=== PATIENT | female | born 1935 | race Caucasian/White ===

== ENCOUNTER → 2017-09-01 | Outpatient (CLI) | payer OTHER ==
[~2017-09-01] VITALS: Ht 154.9 cm; Wt 60.2 kg
[~2017-09-01] MED LIST: AMLODIPINE BESYL5 MG PO; ASPIR 8181 MG PO; BENADRYL25 MG PO; DIOVAN HCT 3201 EAC1 PO; FENTANYL PA25 MCG/HR TRANSDERM; FISH OIL 1,001000 M2 PO; HYDROCODONE-APA1 TA1 PO; LIVALO4 MG PO; MIRAPEX 0.250.25 M1 PO; MOBIC15 MG PO; PANTOPRAZOLE SO40 M1 PO; SEROQUEL 25 MG25 M1 PO; STOOL SOFTENER100 MG PO; TUMS PO; XANAX 0.25 MG0.25 MG
--- NOTE | ~2017-09-01 | HPC ---
[facility] [address] [place] [address] PAIN MANAGEMENT CONSULTATION Name: YURIY SHANNON Room #: REG LEODAN Franca.#: [id number] Admission: 09/01/17 Attend Phys: Caesar Daley MD Discharge: Date of : 34 Report #: [id number] THIS REPORT FOR: //name// CC: Richard Daley DATE OF SERVICE: 09/01/2017 Followup visit for low back pain with radiculopathy and lumbar spondylosis. The patient returns to pain clinic today for treatment. She has multiple pain generators throughout her rotational scoliosis. Pain is emanating from the joints as well as a radicular component from nerve involvement. Today, she reports that her pain is an 8-9/10. Pain is in her back, hips and legs. It radiates with walking and standing. She gets some relief from medication. She has received medication benefit previously from transforaminal epidural injections. We have discussed performance of a bilateral injection today at L5-S1 with hopes that we can provide relief of the bilateral discomfort. MEDICATIONS: Mirapex, meloxicam, Benadryl, alprazolam, hydrocodone 7.5/325 two to three per day, aspirin, pantoprazole, Livalo and warfarin. ALLERGIES: ERYTHROMYCIN, EPINEPHRINE, TRAZODONE. 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 She also has right upper extremity pain and hand pain. She has no history of rheumatoid arthritis. She has a BMI of 25, blood pressure 153/63, heart rate 74, respirations 18. She is not a fall risk. She is able to move steadily and independently without a walker or a cane. She is on no blood thinners. She has all of her medications provided for her by Dr. Mancuso. We did not provide her with any opiate counseling or treatment. MRI is reviewed showing multilevel degenerative changes throughout including lateral listhesis of L3 on L4 and also spinal stenosis and bilateral facet arthropathy, creating neural foraminal narrowing at L5-S1. IMPRESSION: Markedly degenerative spine with rotational scoliosis, spondylosis and lumbar radiculopathy involving multiple dermatomes. RECOMMENDATION: Epidural steroid injection under fluoroscopic guidance. PROCEDURE: She was taken to fluoroscopic suite, placed prone, skin prepped with ChloraPrep. Skin anesthetized over the L5-S1 interspace. Using triplanar fluoroscopic views, I advanced the needle into the neural foramen at L5-S1 on her left first. A 0.5 mL of Omnipaque demonstrated an excellent epidurogram, [facility] [address] [place] [address] PAIN MANAGEMENT CONSULTATION Name: YURIY SHANNON Room #: REG [facility]#: [id number] Admission: 09/01/17 Attend Phys: Caesar Daley MD Discharge: Date of : 34 Report #: [id number] this was followed by 3 mL of 0.5% lidocaine mixed with 40 mg triamcinolone. We then moved the C-arm to the right and performed a mirror image injection using the same technique. She tolerated the procedure well. Her pain score was reduced to 0 at discharge. Followup visit planned as needed. No new medications were ordered for this patient. By: 1245 1430 Caesar Daley MD /nt
[2017-09-01 10:56] VITALS: BP 153/63
== END | disposition home or self-care (01) ==
LOC: PAIN 05-12 07:00
DX: M54.16 Radiculopathy, lumbar region (principal); M41.9 Scoliosis, unspecified; M47.816 Spondylosis without myelopathy or radiculopathy, lumbar region; Z79.899 Other long term (current) drug therapy; Z88.8 Allergy status to other drugs, medicaments and biological substances; Z87.891 Personal history of nicotine dependence

== ENCOUNTER → 2017-09-25 | Outpatient (CLI) | payer OTHER ==
[~2017-09-25] VITALS: Ht 154.9 cm; Wt 60.0 kg
[~2017-09-25] MED LIST changes: +IRON325 PO
--- NOTE | ~2017-09-25 | HPC ---
[facility] [place] [address] PAIN MANAGEMENT CONSULTATION Name: SHANTHI SHANNONCHARLINE Lane Room #: REG [facility].#: [id number] Admission: 09/25/17 Attend Phys: Caesar Daley MD Discharge: Date of : 34 Report #: [id number] THIS REPORT FOR: //name// CC: Richard Daley DATE OF SERVICE: 09/25/2017 CHIEF COMPLAINT: Low back pain. HISTORY OF PRESENT ILLNESS: The patient returns to the pain clinic today and has reported a declining response to lumbar epidural injection. She has mostly pain across her low back. It is worse with back extension. She scores it is 8/10, worse with walking and standing. She has been using heat and a bit of medication to provide some relief. MEDICATIONS: Mirapex, Meloxicam 15 mg daily, Benadryl, fish oil, docusate sodium, Xanax for sleep, hydrocodone 7.5 up to 3 per day provided by Dr. Mancuso, aspirin, pantoprazole, Livalo and Diovan. PQRS REVIEW: Shows a sharp bright 81-year-old with osteoarthritis of the right and left shoulder. It is fairly severe causing pain. Her BMI is 25. Her blood pressure 151/69, heart rate 86, respirations 20 and pain intensity 8/10. She is not a fall risk. She does not use a walking device. She has hypertension, under treatment by Dr. Mancuso and is receiving opioids under his direction. IMPRESSION: Low back pain related to spondylitic changes. RECOMMENDATION: Medial branch nerve blocks bilaterally, L2, L3 and L4 and dorsal ramus block of L5 to denervate the 3 lowest facet joints. This should help treat her MRI documented spondylitic changes. She has severe multilevel facet arthrosis advanced L3-L4 through L5-S1. We will see her back in the pain clinic for diagnostic injections in the next week or two. By: 1721 2210 Caesar Daley MD /nt
[2017-09-25 10:33] VITALS: BP 151/69
== END ==
LOC: PAIN 07:01
DX: M54.5 Low back pain (principal)

== ENCOUNTER → 2017-09-29 | Outpatient (CLI) | payer OTHER ==
[~2017-09-29] VITALS: Ht 154.9 cm; Wt 59.4 kg
--- NOTE | ~2017-09-29 | HPC ---
[facility] [address] [address] PAIN MANAGEMENT CONSULTATION Name: YURIY SHANNON Room #: REG Jenni Wallace#: [id number] Admission: 09/29/17 Attend Phys: Caesar Daley MD Discharge: Date of : 34 Report #: [id number] THIS REPORT FOR: //name// CC: Richard Daley DATE OF SERVICE: 09/29/2017 Followup visit for low back pain with spondylosis. The patient was just recently seen in the clinic on 09/25/2017. She is here today for medial branch nerve blocks for the spondylitic changes of her low back. We are hopeful that if the diagnostic injections are helpful that she will then be a reasonable candidate for radiofrequency ablation. She has failed other therapies including epidural injections. We have discussed spinal cord stimulation therapy, although I think that given her spondylitic back, she is not an ideal candidate for that condition. Her back pain intensity is as high as an 8 with movements. It is predictably produced. We will carefully loly following the diagnostic injections today, repeat them again in a few days and then proceed with radiofrequency as necessary or as indicated. PHYSICAL EXAMINATION: She remains pleasant, alert and oriented, without signs of memory loss or dementia. Her blood pressure today 136/86, heart rate 68, respirations 16, pain across the low back with forward flexion and worse with extension and lateral movements. Tenderness is located just above the iliac crest. I did review her x-rays. She has significant facet arthrosis at multiple levels including the worst arthritis where she has acquired a scoliosis with its apex at L3-L4. PROCEDURE: Medial branch nerve blocks 4 levels. Chosen levels will be at the most affected level. We will treat the L4, L3, L2 and L1 medial branch nerves bilaterally. DESCRIPTION OF PROCEDURE: After informed consent, she was taken to fluoroscopic suite where she was placed prone. Skin was prepped with ChloraPrep and anesthetized with 1% lidocaine overlying the targets for each of the above-mentioned medial branch nerves on the left. A careful placement of the needles was performed, although targets are challenging in this scenario. We were able to locate the Pop dog landmarks and needle's position. After negative aspiration, I injected each needle with 0.5 to 1 mL of 0.5% bupivacaine and all 4 needles were removed. C-arm was then repositioned and the patient was allowed to reposition as well. We then identified the right-sided target zones. All 4 needles were placed again at the L4, L3, L2, L1 medial branch nerve locations at the medial transverse process and after negative aspiration, [place] [address] PAIN MANAGEMENT CONSULTATION Name: YURIY SHANNON Room #: REG CLJenni Wallace#: [id number] Admission: 09/29/17 Attend Phys: Caesar Daley MD Discharge: Date of : 34 Report #: [id number] injected 0.5 to 1 mL of 0.5% bupivacaine in each of these target zones. Waskish were removed, Band-Aid was applied. She was taken to recovery room where she was observed from 14:25 through 15:15. We carefully monitored her scores and performed provocative maneuvers. From 3:00 through 6:00, her pain scores were 0-1. By 8:00 that evening, her pain scores had returned to 2-3. She placed a call to our clinic. We planned the second diagnostic treatments on Friday followed by radiofrequency if we see similar results. By: 1043 1423 Caesar Daley MD /nt
[2017-09-29 13:47] VITALS: BP 136/86
== END | disposition home or self-care (01) ==
LOC: PAIN 06:59
DX: M47.816 Spondylosis without myelopathy or radiculopathy, lumbar region (principal); G89.29 Other chronic pain; Z87.891 Personal history of nicotine dependence; Z88.8 Allergy status to other drugs, medicaments and biological substances; Z79.82 Long term (current) use of aspirin; Z79.899 Other long term (current) drug therapy; Z79.891 Long term (current) use of opiate analgesic

== ENCOUNTER → 2017-10-06 | Outpatient (CLI) | payer OTHER ==
[~2017-10-06] VITALS: Ht 154.9 cm; Wt 58.8 kg
--- NOTE | ~2017-10-06 | HPC ---
[facility] [place] [address] PAIN MANAGEMENT CONSULTATION Name: YURIY SHANNON Room #: REG Jenni Wallace#: [id number] Admission: 10/06/17 Attend Phys: Caesar Daley MD Discharge: Date of : 34 Report #: [id number] THIS REPORT FOR: //name// CC: Richard Daley DATE OF SERVICE: 10/06/2017 Followup visit for lumbar spondylosis with facet arthropathy. The patient returns to the pain clinic today for a second in a series of diagnostic medial branch nerve blocks. We performed the first treatments on 09/29/2017. We reviewed her diagnostic flow chart. For the first 2 hours following the procedure, her pain score was zero. Over the next hour, it gradually increased from 1-2 and then by 8:00 in the evening following the procedure, she was back to baseline at 4-5 pain score. This is what we would expect for a favorable response. We have elected to go ahead and proceed again with her second diagnostic injection today using bupivacaine. I have reviewed needle placements and we will try to place them down identically to her previous treatments. She has a dextroscoliosis with an apex at L2-L3 and a right lateral listhesis of L3 on L4 with associated Mobic endplate changes. At previous visit, I treated the L1, L2, L3 and L4 medial branch nerves bilaterally. PHYSICAL EXAMINATION: Today, she is pleasant, alert and oriented. She is a little worried about her , he is being treated for prostate cancer with radiation. Her blood pressure is 143/65, heart rate 69, respirations 16, O2 sat 96%. Pain intensity is 4-5/10. Localized pain in the low back with back extension. Minimal pain with flexion. IMPRESSION: Low back pain with spondylosis, dextroscoliosis and facet arthropathy. PROCEDURE: Medial branch nerve blocks L1-L2, L3-L4 bilaterally. After informed consent, she was taken to fluoroscopic suite where she was placed prone, skin prepped with ChloraPrep. Skin was anesthetized first on the left with 1% lidocaine overlying the target for each of the bone above-mentioned medial branch nerves. Careful placement of 25-gauge needles was performed. At each target zone identified, I injected 0.5 mL of 0.5% bupivacaine at the L1, L2, L3 and L4 medial branch nerves corresponding to the L2, L3, L4, L5 transverse process. Riddle were withdrawn. C-arm was moved to the right and mirror image injections were performed on that side. She tolerated the procedure well. There were no complications. She was taken to recovery room and an ice was applied to the back. She was given a [id number] [address] PAIN MANAGEMENT CONSULTATION Name: YURIY SHANNON Room #: REG LEODAN Wallace#: [id number] Admission: 10/06/17 Attend Phys: Caesar Daley MD Discharge: Date of : 34 Report #: [id number] and discharged. Pain score flow sheet was provided. I am assuming that she will have a similar response as is typical. If so, we will proceed with radiofrequency ablation at followup visit. I would prefer to do both sides simultaneously if we are allowed to do so by her insurance company. We could not, I think do it officially without any increased risk to the patient and this would also be cost effective for her. Finally, I did review her lab work. She appears to have iron deficiency anemia and although she has been placed on oral iron supplements, her numbers remain low. She has also lost some weight. She will be following up with Dr. Mancuso this week. These injections include no triamcinolone or other substance beyond local anesthetic. They should not be playing a role in her changes within lab work. I am concerned, however, that she remains on meloxicam and she could have a GI bleed, which is being masked by oral iron supplement. She has been instructed to discontinue her meloxicam. By: 1202 1847 Caesra Daley MD /nt
[2017-10-06 10:43] VITALS: BP 143/65
== END ==
LOC: PAIN 07:16
DX: M47.816 Spondylosis without myelopathy or radiculopathy, lumbar region (principal); M41.86 Other forms of scoliosis, lumbar region; M46.96 Unspecified inflammatory spondylopathy, lumbar region; G89.29 Other chronic pain; Z87.891 Personal history of nicotine dependence; Z88.8 Allergy status to other drugs, medicaments and biological substances; Z79.82 Long term (current) use of aspirin; Z79.899 Other long term (current) drug therapy; Z98.890 Other specified postprocedural states

== ENCOUNTER → 2017-12-18 | Outpatient (CLI) | payer OTHER ==
[~2017-12-18] VITALS: Ht 154.9 cm; Wt 58.4 kg
[~2017-12-18] MED LIST changes: +COZAAR 25 MG TA25 M1 PO; +NORVASC5 MG PO
--- NOTE | ~2017-12-18 | HPC ---
[facility] [address] [place] [address] PAIN MANAGEMENT CONSULTATION Name: YURIY SHANNON Room #: REG LEODAN Franca.#: [id number] Admission: 12/18/17 Attend Phys: Caesar Daley MD Discharge: Date of : 34 Report #: [id number] THIS REPORT FOR: //name// CC: Richard Daley DATE OF SERVICE: 12/18/2017 Followup visit for lumbar spondylosis. The patient is here today for radiofrequency ablation on the right. The patient had a nice response to medial branch nerve blocks on 2 occasions and she is here today to complete the procedure by the first step of radiofrequency, which would be the right side, her most troublesome side. She has marked curvature scoliosis and spondylosis causing back pain and she also has radiculopathy. We have talked about multiple pain generators and I think it is clear that although some spondylitic joints provided great deal of her discomfort, she also has radicular components as well. She may ultimately require an epidural injection as well and there is a possibility that down the line, we might consider spinal cord stimulation. First things first. We will complete the radiofrequency procedure today that has been outlined in previous notes. She is on no blood thinners. Medications have been reviewed and reconciled. Pain score is an 8 prior to the beginning of the procedure. She describes it as a dull aching sensation across her low back with some radiation down into the anterior thighs. IMPRESSION: Low back pain with scoliosis and spondylosis. Lumbar radiculopathy as well. PROCEDURE: Radiofrequency L1-L2, L3-L4 on the right under fluoroscopic guidance. After informed consent, the patient was taken to fluoroscopic suite, placed prone, skin prepped with ChloraPrep. Skin was anesthetized over the target entry points for the L2, L3, L4, L5 transverse processes. These correspond to the medial branch nerves of L1, L2, L3, L4. With careful AP and lateral views, I positioned a 10-mm active tip 20-gauge RFK needle at the medial border of the transverse process where it becomes the superior articular process. Clyde were positioned and checked prior to the initiation of testing. Testing went extremely well with stimulation sensory responses at 0.3 or 0.4 at each level. This was followed by motor testing at 2.0 for the 2 Hz stimulation. There was some slight motor response at the L3 transverse process and the needle was withdrawn 1 mm and then 2 until there was no motor testing. We checked it again [address] [address] PAIN MANAGEMENT CONSULTATION Name: YURIY SHANNON Room #: REG [facility]#: [id number] Admission: 12/18/17 Attend Phys: Caesar Daley MD Discharge: Date of : 34 Report #: [id number] later in the procedure to ensure that there was no movement in the leg prior to performing any lesioning. When we were satisfied with the positions of the needles, I withdrew the probes and injected 1 mL of lidocaine through each needle. The probes were returned to the needle and we waited a full 90 seconds before beginning the radiofrequency ablation. The ablation was performed at 80 degrees for 90 seconds. She had no discomfort in back or legs during the procedure. Probes were once again removed. Through each needle, I injected 0.5 mL of 0.5% bupivacaine mixed with 10 mg of triamcinolone and the needles were removed. She tolerated the procedure well. There were no complications. She had no excessive weakness, numbness, tingling or pain in the recovery room, and was discharged in good condition, able to ambulate. A followup planned in 1 week for the of the radiofrequency procedure by performing the left side. By: 1239 1451 Caesar Daley MD /nt
[2017-12-18 10:31] VITALS: BP 137/68
== END | disposition home or self-care (01) ==
LOC: PAIN 07:27
DX: M47.816 Spondylosis without myelopathy or radiculopathy, lumbar region (principal); M41.86 Other forms of scoliosis, lumbar region; G89.29 Other chronic pain; Z87.891 Personal history of nicotine dependence; Z88.8 Allergy status to other drugs, medicaments and biological substances; Z79.899 Other long term (current) drug therapy; Z79.82 Long term (current) use of aspirin

== ENCOUNTER → 2018-10-15 | Outpatient (CLI) | payer OTHER ==
[~2018-10-15] VITALS: Ht 154.9 cm; Wt 55.5 kg
[~2018-10-15] MED LIST changes: +CALCIUM 600 +1 EAC1 PO; +FOSAMAX 70 MG T70 MG PO; +HYDROCHLOROTHIA25 M2 PO; +LOSARTAN POTAS100 MG PO
[2018-10-15 10:19] VITALS: BP 158/89
--- NOTE | 2018-10-15 10:31 | NUR ---
Pain Clinic Assessment: 1. History of Osteoarthritis: Left Upper Extremity Right Upper Extremity History of Rheumatoid Arthritis: Not Applicable 2. Height: 5 ft. 1 in. 154.9 cm. Weight: 122.4 lb. oz. 55.520 kg. Patient's BMI: 23.1 3. Vital Signs: BP: 158/89 Pulse: 74 Resp: 20 Temp: 02 Sat: 96 ECG Mon: 4. Pain Intensity: 6 5. Fall Risk: Dizziness: Y Needs help standing or walking: Y Fallen in the last 3 months: N Fall risk comments: 6. Patient on Blood Thinner: None 7. History of Hypertension: Y 8. Opioid Therapy greater than 6 weeks: Y Opiate Contract Signed: 9. Risk Assessment Tool Provided: 0-LOW RISK 10. Functional Assessment Tool: 11. Recreational Drug Use: Never Drug Type: Tobacco Use: Former Smoker Tobacco Type: Amount or Packs/day: How Many Years: Alcohol Use: Yes Frequency: Quant:
--- NOTE | 2018-10-27 17:25 | HPC ---
[facility] [address] [address] PAIN MANAGEMENT CONSULTATION Name: YURIY SHANNON Room #: REG LEODAN Wallace#: [id number] Admission: 10/15/18 ������������������ Attend Phys: Caesar Daley MD Discharge: ������������������ Date of : 34 Report #: [id number] THIS REPORT FOR: //name// CC: EVA Daley DATE OF SERVICE: 10/15/2018 Followup visit for low back pain with spondylosis. The patient returns to pain clinic today after undergoing spondylosis treatment with radiofrequency ablation in the fall of 2017. I treated L1, L2, L3 medial branch nerves bilaterally. She reports that the response is limited in both relief and duration and her pain returned fairly quickly. She is here today to discuss the additional options. She was here for a 25-minute consultation. We went back to her history. Her pain is low back and radiates some down the posterolateral aspect of the legs. She describes it as a chronic constant dull aching sensation and stiffness. Its intensity is a 6/10 on average daily basis. It is worsened by walking and standing. She cannot go more than about 5 minutes before she must find some place to sit down. It is also exacerbated by simple day-to-day household tasks including bending, lifting, laundry, and other things. She reports that she gets some relief from heat and at rest when she is sitting and finds relief with medication, which she has taken very cautiously because of the information in the press and all she has heard about the opioid crisis. She uses hydrocodone 7.5 taking one-half to one tablet no more than 3 times daily. She is grateful for the pain relief that it provides. It is notable and she has not seen any significant side effects from it. She does take some other centrally acting medications including alprazolam, which she has reported as a medication she takes for elevated blood pressure. She does not report an anxiety disorder. She is on Mirapex 0.25 mg at bedtime and Benadryl also taken for sleep 25 mg at bedtime. She uses meloxicam 15 mg daily and has denied any GI side effects. Other medications include Livalo, pantoprazole, aspirin, docusate sodium, ferrous sulfate, amlodipine, losartan, hydrochlorothiazide, calcium carbonate and Fosamax. PHYSICAL EXAMINATION: GENERAL: She is a pleasant 82-year-old. She is alert and oriented. Shows no signs of cognitive decline. [address] [address] PAIN MANAGEMENT CONSULTATION Name: YURIY SHANNON Room #: REG CLI [facility]#: [id number] Admission: 10/15/18 ������������������ Attend Phys: Caesar Daley MD Discharge: ������������������ Date of : 34 Report #: [id number] VITAL SIGNS: Her blood pressure is 158/89, heart rate 74, respirations 20. She is 5 feet 1 with a BMI of 23.1. She has some pain and tenderness across the lumbosacral segment. She has pain with forward flexion, extension, rotational movements. It is mild and modest. The longer she is on her feet, the more that she complains of tense discomfort across her lumbosacral segment. The pain then radiates on the posterior aspect of both legs. CHEST: Clear. CARDIAC: Rhythm is regular. IMPRESSION: Chronic low back pain. She has a dextroscoliosis lumbar spine and right lateral listhesis of L3 on L4. There is multilevel degenerative disease, most severe at L2-L3 and L3-L4 with bilateral facet arthrosis advanced through L3-L4 all the way down to S1. She also has central stenosis at L3-L4, which is more significant than a milder stenosis noted at L2-L3 and L4-L5. Foraminal narrowing is present as well at several levels. The findings are noted on the MRI, which is almost 3 years old at this point. IMPRESSION: We discussed treatment options for her at the age of 81. Injection therapies would be a challenge as we have found that she has failed denervation procedures for the facet joints. They may not be the only pain generators. She may have some axial back pain related to spinal stenosis and discogenic mechanisms as well. I would consider perhaps an intermittent epidural injection once again to see if that would provide relief. It used to in the past. We had a long discussion about medication management. She is responding to hydrocodone and opioid medication. I believe that her chronic pain is as much of a chronic condition as asthma, diabetes or hypertension. All of those ____ are treated with daily medications. If she responds well to hydrocodone and needs to stay on it for the rest of her life, I think that is quite appropriate given other options. Surgery is a terrible option for her at this stage. It is extensive, carries with it significant risks and has a long recovery period. Advanced therapies including implantable devices are fine, but I certainly would see if she could manage with medication before committing her to have an implanted expensive pain relieving device, which also has a failure rate. I have agreed to provide her medication for her under terms of written opioid agreement. She may also receive this medication from Dr. Mancuso, who has been gracious enough to provide the medication for her. He provides her with hydrocodone 7.5/325, 180 tablets. Generally, it is enough medication to get her through about 45-60 days. I think this is quite appropriate and reasonable. Since he will provide it for her, we will not bring her into our medication [facility] [address] [place] [address] PAIN MANAGEMENT CONSULTATION Name: YURIY SHANNON Room #: REG [facility] Franca.#: [id number] Admission: 10/15/18 ������������������ Attend Phys: Caesar Daley MD Discharge: ������������������ Date of : 34 Report #: [id number] management program, but I am willing to provide another epidural injection as a trial. She will schedule for that sometime in the next 4-6 weeks. ��������������������������������������������� <ELECTRONICALLY SIGNED> ���������������������������������������� By: Caesar Daley MD ��������������������������������������������� 10/27/18 1725 1753 2338 Caesar Daley MD /nt
== END ==
LOC: PAIN 06:54
DX: M47.817 Spondylosis without myelopathy or radiculopathy, lumbosacral region (principal); M51.36 Other intervertebral disc degeneration, lumbar region; M48.061 Spinal stenosis, lumbar region without neurogenic claudication; M41.86 Other forms of scoliosis, lumbar region; M43.16 Spondylolisthesis, lumbar region; Z79.899 Other long term (current) drug therapy

== ENCOUNTER → 2018-11-09 | Outpatient (CLI) | payer OTHER ==
[~2018-11-09] VITALS: Ht 154.9 cm; Wt 55.2 kg
[~2018-11-09] MED LIST changes: -HYDROCODONE-APA1 TA1 PO; +NORCO 7.5-3251 EACH PO
--- NOTE | ~2018-11-09 | HPC ---
[facility] [address] [place] [address] PAIN MANAGEMENT CONSULTATION Name: YURIY SHANNON Room #: REG [facility] Franca.#: [id number] Admission: 11/09/18 ������������������ Attend Phys: Caesar Daley MD Discharge: ������������������ Date of : 33 Report #: [id number] THIS REPORT FOR: //name// CC: Richard Daley DATE OF SERVICE: 11/09/2018 Followup visit for chronic and persistent low back pain with radiculopathy and spondylosis. The patient returns to the pain clinic today hopeful that we can provide some relief with an epidural injection. She has significant spinal stenosis as well as a rotational scoliosis of the lumbar spine, which causes persistent daily back pain with radiculopathy. She is a bit discouraged. Her ability to stand on her feet and walk is limited. She longingly and wistfully tells me that she has trouble shopping. We both agree that this is a real interference especially for woman who enjoy it. Simple household tasks are difficult including bending, cooking and standing. She scores her intensity of pain at a 7/10. She was last seen on 10/15/2018. We discussed at that time an epidural injection. Please refer to that dictation. I reviewed the MRI and the changes that are noted in her dictation from three weeks ago. We discussed the injection. 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 PLAN: Lumbar epidural steroid injection at L3-L4 under fluoroscopic guidance. PROCEDURE: She was taken to fluoroscopic suite, placed prone, skin prepped with ChloraPrep. Skin anesthetized over the L3-L4 interspace. A 20-gauge Tuohy epidural needle advanced in the epidural space with loss of resistance. There was no blood or CSF aspirated. A 1 mL of Omnipaque injected. Good spread of dye observed into the epidural space followed by 3 mL of 0.5% lidocaine mixed with 80 mg of triamcinolone. She tolerated the procedure well and was observed for 45 minutes and discharged. Followup visit planned in 1 to 2 months. ��������������������������������������������� ���������������������������������������� By: ��������������������������������������������� [id number] Caesar Daley MD /nt
[2018-11-09 09:09] VITALS: BP 146/76
--- NOTE | 2018-11-09 09:22 | NUR ---
Pain Clinic Assessment: 1. History of Osteoarthritis: Left Upper Extremity Right Upper Extremity History of Rheumatoid Arthritis: Not Applicable 2. Height: 5 ft. 1 in. 154.9 cm. Weight: 121.6 lb. oz. 55.157 kg. Patient's BMI: 23.0 3. Vital Signs: BP: 146/76 Pulse: 70 Resp: 14 Temp: 02 Sat: 97 ECG Mon: 4. Pain Intensity: 3-4 5. Fall Risk: Dizziness: Y Needs help standing or walking: Y Fallen in the last 3 months: N Fall risk comments: 6. Patient on Blood Thinner: None 7. History of Hypertension: Y 8. Opioid Therapy greater than 6 weeks: Y Opiate Contract Signed: 9. Risk Assessment Tool Provided: 0-LOW RISK 10. Functional Assessment Tool: 11. Recreational Drug Use: Never Drug Type: Tobacco Use: Former Smoker Tobacco Type: Amount or Packs/day: How Many Years: Alcohol Use: Yes Frequency: Quant:
== END | disposition home or self-care (01) ==
LOC: PAIN 08:41
DX: M51.16 Intervertebral disc disorders with radiculopathy, lumbar region (principal); M48.061 Spinal stenosis, lumbar region without neurogenic claudication; M41.86 Other forms of scoliosis, lumbar region; M43.16 Spondylolisthesis, lumbar region; G89.29 Other chronic pain; Z88.8 Allergy status to other drugs, medicaments and biological substances; Z79.82 Long term (current) use of aspirin; Z79.899 Other long term (current) drug therapy

== ENCOUNTER → 2018-12-07 | Outpatient (CLI) | payer OTHER ==
[~2018-12-07] VITALS: Ht 154.9 cm; Wt 54.9 kg
[~2018-12-07] MED LIST changes: +CRESTOR20 MG PO
[2018-12-07 09:01] VITALS: BP 159/69
--- NOTE | 2018-12-07 09:13 | NUR ---
Pain Clinic Assessment: 1. History of Osteoarthritis: Left Upper Extremity Right Upper Extremity History of Rheumatoid Arthritis: Not Applicable 2. Height: 5 ft. 1 in. 154.9 cm. Weight: 121.0 lb. oz. 54.885 kg. Patient's BMI: 22.9 3. Vital Signs: BP: 159/69 Pulse: 71 Resp: 14 Temp: 02 Sat: 97 ECG Mon: 4. Pain Intensity: 3-4 5. Fall Risk: Dizziness: N Needs help standing or walking: Y Fallen in the last 3 months: N Fall risk comments: 6. Patient on Blood Thinner: None 7. History of Hypertension: Y 8. Opioid Therapy greater than 6 weeks: Y Opiate Contract Signed: 9. Risk Assessment Tool Provided: 0-LOW RISK 10. Functional Assessment Tool: 11. Recreational Drug Use: Never Drug Type: Tobacco Use: Former Smoker Tobacco Type: Amount or Packs/day: How Many Years: Alcohol Use: Yes Frequency: Monthly Quant: 1
--- NOTE | 2018-12-10 16:33 | HPC ---
[facility] [address] PAIN MANAGEMENT CONSULTATION Name: YURIY SHANNON Room #: REG [facility] [place]#: [id number] Admission: 12/07/18 Attend Phys: Caesar Daley MD Discharge: Date of : 33 Report #: [id number] THIS REPORT FOR: //name// CC: Richard Daley DATE OF SERVICE: 12/07/2018 Followup visit for chronic low back pain with scoliosis. The patient returns to pain clinic today for a second epidural injection. She had an injection on 11/09, which is quite helpful. She was very comfortable for about 10 days. Pain is now returning. We are hopeful that we can extend the relief with another injection at the same level. I reviewed her films and we will try and make efforts to inject her in the same location at the apex of her scoliosis. Last injection was performed at L2-L3 as she has severe stenosis at L3-L4, milder at L2-L3. IMPRESSION: Chronic low back pain with dextroscoliosis right lateral listhesis L3 on L4, degenerative changes with spinal stenosis, severe at L3-L4, L2-L3, L4-L5. PROCEDURE: She was taken to fluoroscopic suite, placed prone, skin prepped with ChloraPrep. Skin anesthetized over the L2-L3 interspace. A 20-gauge Tuohy epidural needle advanced in the epidural space with loss of resistance. There was no blood or CSF aspirated. 1 mL of Omnipaque injected. Good spread of dye observed in the epidural space followed by 3 mL of 0.5% lidocaine mixed with 80 mg triamcinolone. She tolerated the procedure well and was observed for 45 minutes and discharged. Followup visit planned as needed. <ELECTRONICALLY SIGNED> By: Caesar Daley MD 12/10/18 [id number] [id number] Caesar Daley MD /nt
== END | disposition home or self-care (01) ==
LOC: PAIN 06:44
DX: M51.36 Other intervertebral disc degeneration, lumbar region (principal); M48.061 Spinal stenosis, lumbar region without neurogenic claudication; G89.29 Other chronic pain; M41.86 Other forms of scoliosis, lumbar region; M43.16 Spondylolisthesis, lumbar region; Z87.891 Personal history of nicotine dependence; Z88.8 Allergy status to other drugs, medicaments and biological substances; Z79.82 Long term (current) use of aspirin; Z79.899 Other long term (current) drug therapy; Z98.890 Other specified postprocedural states

== ENCOUNTER → 2019-06-10 | Outpatient (CLI) | payer OTHER | LOC: SJCVCIMAG 13:41 | DX: I10 Essential (primary) hypertension (principal); E78.00 Pure hypercholesterolemia, unspecified; I65.23 Occlusion and stenosis of bilateral carotid arteries; Z79.899 Other long term (current) drug therapy ==

== ENCOUNTER → 2019-07-28 | Outpatient (CLI) | payer OTHER | LOC: SJCVC 10:14 | DX: I10 Essential (primary) hypertension (principal); I65.23 Occlusion and stenosis of bilateral carotid arteries; E78.00 Pure hypercholesterolemia, unspecified ==

== ENCOUNTER → 2019-12-30 | Outpatient (CLI) | payer OTHER ==
[~2019-12-30] VITALS: Ht 154.9 cm; Wt 55.4 kg
[~2019-12-30] MED LIST changes: +BYSTOLIC10 MG PO; +EDARBI80 MG PO
--- NOTE | ~2019-12-30 | HPC ---
[facility] [address] [address] PAIN MANAGEMENT CONSULTATION Name: YURIY SHANNON Ariana Room #: REG [facility] [place]#: [id number] Admission: 12/30/19 Attend Phys: Caesar Daley MD Discharge: Date of : 33 Report #: [id number] THIS REPORT FOR: cc: Richard Mancuso MD, Eric K. MD Morgan, Richard L. MD ~ CC: Richard Daley DATE OF SERVICE: 12/30/2019 Followup visit for severe chronic low back pain with scoliosis. The patient returns to pain clinic today complaining of pain across the lumbosacral segment. She has radiating pain into the buttocks and around the anterior lateral thigh. She has significant changes throughout her spine. Her MRI report is indicative of a very significantly scoliotic spine with dextroscoliosis apex at L2-L3, lateral listhesis of L3 on L4 and then she has degenerative disks at multiple levels all the way from L2-L3 through L5-S1. There is some moderate canal stenosis 3 levels through the mid lumbar spine and foraminal narrowing, which is worse on the right at L4 and L5. She has had some mild relief with epidural injections. Facet injections have been tried with only short-term benefit. She takes medication and has been on it for quite some time. She tolerates hydrocodone well at 7.5/325 taking as many as [address] Mancuso prescribes her medications and there are no unexpected entries on the prescription drug monitoring program information. She does also take alprazolam. She has shown that she can take it safely and she carefully safeguards her medications from others. Her addiction risk score is 0 on the ORT. Her functional assessment score, however, continues to remain high above 40 and so pain is impacting her day-to-day activities. Nonetheless, she continues to drive a car. She does her own shopping. She pushes through the pain. She is here today hopeful for an epidural. PQRS exam review is positive for diffuse osteoarthritis. Her worst pain, however, is the spondylitic spine described above. She has a BMI of 23.1, blood pressure of 153/86, heart rate 81, respirations 20, O2 sat 96, pain intensity 7/10. She needs help standing and uses a cane and sometimes a walker. She has not fallen in the last 3 months, is very cautious. There are no blood thinners. Dr. Mancuso treats her for hypertension. All medications were reviewed and reconciled. [facility] [address] [place] [address] PAIN MANAGEMENT CONSULTATION Name: YURIY SHANNON Room #: REG [facility]#: [id number] Admission: 12/30/19 Attend Phys: Caesar Daley MD Discharge: Date of : 33 Report #: [id number] SOCIAL HISTORY: She denies use of tobacco, drinks alcohol every so often in a social setting. PHYSICAL EXAMINATION: GENERAL: She is bright, pleasant, alert, and oriented. CHEST: Clear to auscultation. CARDIAC: Rhythm is regular. VITAL SIGNS: As noted above. Tenderness across the lumbosacral segment with some marked scoliosis palpable. She has tenderness all the way across the lumbosacral segment that radiates through the hips bilaterally. There is some mild straight leg raising discomfort. Her gait is antalgic. IMPRESSION: Chronic intractable low back pain with dextroscoliosis, right lateral listhesis, spinal stenosis and radiculopathy. RECOMMENDATION: We will try an epidural injection today. PROCEDURE: After informed consent, she was taken to fluoroscopic suite, placed prone, skin prepped with ChloraPrep. Skin anesthetized over the L4-L5 interspace. A 20-gauge Tuohy epidural needle advanced in the epidural space with loss of resistance. There was no blood or CSF aspirated. A 1 mL of Omnipaque injected. Good spread of dye observed in the epidural space. It was then followed by 3 mL of 0.5% lidocaine mixed with 80 mg triamcinolone. She tolerated the procedure well and was observed for 45 minutes and discharged. Followup visit planned as needed. By: 1540 1640 Caesar Daley MD /sly
[2019-12-30 14:46] VITALS: BP 153/86
--- NOTE | 2019-12-30 15:04 | NUR ---
ALERT - Rosales Score <= 18: Add Problem PRESSURE ULCER RISK to Patient's Care Plan
--- NOTE | 2019-12-30 15:05 | NUR ---
Pain Clinic Assessment: 1. History of Osteoarthritis: Left Upper Extremity Right Upper Extremity BOTH HANDS BACK History of Rheumatoid Arthritis: Not Applicable 2. Height: 5 ft. 1 in. 154.9 cm. Weight: 122.2 lb. oz. 55.429 kg. Patient's BMI: 23.1 3. Vital Signs: BP: 153/86 Pulse: 81 Resp: 20 Temp: 02 Sat: 96 ECG Mon: 4. Pain Intensity: 6-7 5. Fall Risk: Dizziness: N Needs help standing or walking: Y Fallen in the last 3 months: N Fall risk comments: 6. Patient on Blood Thinner: None 7. History of Hypertension: Y 8. Opioid Therapy greater than 6 weeks: Y Opiate Contract Signed: 9. Risk Assessment Tool Provided: LOW RISK 0/3 10. Functional Assessment Tool: 11. Recreational Drug Use: Never Drug Type: Tobacco Use: Former Smoker Tobacco Type: Amount or Packs/day: How Many Years: Alcohol Use: Yes Frequency: Monthly Quant: 1
== END | disposition home or self-care (01) ==
LOC: PAIN 06:56
PROVIDERS: ATTEND Anesthesiology Pain Medicine
DX: M54.5 Low back pain (principal); G89.29 Other chronic pain; M48.061 Spinal stenosis, lumbar region without neurogenic claudication; M54.16 Radiculopathy, lumbar region; M41.86 Other forms of scoliosis, lumbar region; Z79.899 Other long term (current) drug therapy; Z98.890 Other specified postprocedural states; Z87.891 Personal history of nicotine dependence

== ENCOUNTER → 2020-01-26 | Outpatient (CLI) | payer OTHER | LOC: SJCVC 10:33 | PROVIDERS: ATTEND Internal Medicine Cardiovascular Disease | DX: I10 Essential (primary) hypertension (principal); E78.00 Pure hypercholesterolemia, unspecified; I65.23 Occlusion and stenosis of bilateral carotid arteries; Z79.899 Other long term (current) drug therapy; Z87.891 Personal history of nicotine dependence; Z82.49 Family history of ischemic heart disease and other diseases of the circulatory system ==

== ENCOUNTER → 2020-09-05 | Outpatient (CLI) | payer OTHER | LOC: SJCVCIMAG 08:43 | PROVIDERS: ATTEND Internal Medicine Cardiovascular Disease | DX: I65.23 Occlusion and stenosis of bilateral carotid arteries (principal); I10 Essential (primary) hypertension; E78.00 Pure hypercholesterolemia, unspecified; G89.29 Other chronic pain; Z88.8 Allergy status to other drugs, medicaments and biological substances; Z79.899 Other long term (current) drug therapy; Z90.710 Acquired absence of both cervix and uterus; Z98.890 Other specified postprocedural states; Z87.891 Personal history of nicotine dependence; Z82.49 Family history of ischemic heart disease and other diseases of the circulatory system ==